=== PATIENT | male | born 1995 | race American Indian/Alaskan Native ===

== ENCOUNTER 2017-06-15 01:22 | Emergency (ER) | payer MEDICAID ==
[2017-06-15] MEDS ORDERED: ATIVAN IM ONE (02:15)
[2017-06-15] MEDS ORDERED: HALDOL IM ONE (02:15)
[2017-06-15] MEDS ORDERED: HALDOL ONE (02:17)
[2017-06-15] MEDS ORDERED: ATIVAN ONE (02:18)
[2017-06-15 03:33] LABS: Anion Gap 20 mmol/L; Blood Urea Nitrogen 11 mg/dL (9-20); Calcium 9.4 mg/dL (8.4-10.2); Carbon Dioxide 21 mmol/L (22-30); Chloride 101.1 mmol/L (98-107); Glucose 96 mg/dL (75-100); Potassium 3.9 mmol/L (3.6-5.0); Sodium 138 mmol/L (137-145)
[2017-06-15 03:34] LABS: Basophils % (Auto) 1.2 % (0.0-1.8); Eosinophils % (Auto) 3.4 % (0.0-4.3); Hematocrit 41.6 % (35.5-45.6); Hemoglobin 14.6 gm/dl (11.8-15.2); Mean Corpuscular HGB Conc 35 % (32-34); Mean Corpuscular Hemoglobin 28 pg (28-32); Mean Corpuscular Volume 79 fl (84-94); Platelet Count 258 K/mm3 (140-440); Red Blood Count 5.28 M/mm3 (3.65-5.03); White Blood Count 9.9 K/mm3 (4.5-11.0)
[2017-06-15 06:09] LABS: Urine Drugs of Abuse Note Disclamer
[2017-06-15 06:18] LABS: Bilirubin,Urine NEG (Negative); Blood,Urine NEG (Negative); Ketones,Urine NEG (Negative); Leukocyte Esterase,Urine NEG (Negative); Mucus,Urine FEW /HPF; Nitrite,Urine NEG (Negative); Protein,Urine <15 mg/dL mg/dL (Negative); Urobilinogen,Urine < 2.0 mg/dL (<2.0)
[2017-06-15] MEDS ORDERED: ALUM-MAG HYDROX-SIMETH 200-200-20MG/5ML PO PRN (07:31)
[2017-06-15] MEDS ORDERED: TYLENOL PO PRN (07:31)
[2017-06-15] MEDS ORDERED: MILK OF MAGNESIA PO PRN (07:31)
--- NOTE | 2017-06-15 07:32 | Emergency Department Report ---
ED Psych HPI - General Chief Complaint: Psych Stated Complaint: MH EVAL/POSS MANIC EPISODE Time Seen by Provider: 06/15/17 07:23 Source: patient, police Mode of arrival: Ambulatory Limitations: Other - History of Present Illness Initial Comments: 22-year-old male with a pasthypertension and schizoaffective disorder presents to the ED with combative behavior. Patient was picked up at 12:30 AM by the police department for become irate and imaging a door. Per GIs she states that patient did not take his medications today and he heard voices telling him to kick the door). Denies suicidal homicidal ideation. Denies any physical complaints. Presented with elevated blood pressure upon arrival. Patient received Haldol 5 mg IM and Ativan 2 mg IM at 2:20 AM prior to my evaluation and is currently sleeping and sedated. Patient nods in response to questions but unable to hold a conversation at this time. - Related Data Home Medications Medication Instructions Recorded Confirmed Last Taken Cogentin 10 mg PO BID 06/15/17 06/15/17 Unknown Depakote 100 mg PO BID 06/15/17 06/15/17 Unknown Haldol 10 mg PO BID 06/15/17 06/15/17 Unknown SEROquel 100 mg PO 06/15/17 Unknown Allergies Allergy/AdvReac Type Severity Reaction Status Date / Time No Known Allergies Allergy Verified 06/15/17 01:48 ED Review of Systems ROS: Stated complaint: MH EVAL/POSS MANIC EPISODE Other details as noted in HPI Comment: Unobtainable due to pts medical conditions (as per hpi) ED Past Medical Hx - Past Medical History Previous Medical History?: Yes Hx Hypertension: Yes Hx Psychiatric Treatment: Yes (schizoaffective disorder) - Surgical History Past Surgical History?: No - Social History Smoking Status: Never Smoker Substance Use Type: None - Medications Home Medications: Home Medications Medication Instructions Recorded Confirmed Last Taken Type Cogentin 10 mg PO BID 06/15/17 06/15/17 Unknown History Depakote 100 mg PO BID 06/15/17 06/15/17 Unknown History Haldol 10 mg PO BID 06/15/17 06/15/17 Unknown History SEROquel 100 mg PO 06/15/17 Unknown History ED Physical Exam - General Limitations: No Limitations - Other Other exam information: General: Patient has been medicated and is sleeping Head exam: Atraumatic, normocephalic Eyes exam: Normal appearance, pupils equal reactive to light ENT: Moist mucous membrane, normal oropharynx Neck exam: Normal inspection, full range of motion Respiratory exam: Clear to auscultation bilateral, no wheezes, rales, crackles Cardiovascular: Normal rate and rhythm, normal heart sounds Abdomen: Soft, nondistended, and nontender, with normal bowel sounds, no rebound, or guarding Extremity: Full range of motion normal inspection no deformity Back: Normal Inspection, full range of motion, no tenderness Neurologic: Sedated, arousable, able to nod to questions, no focal weakness, Psychiatric: normal affect, normal mood Skin: Warm, dry, intact ED Course Vital Signs 06/15/17 06/15/17 01:40 07:31 Temperature 98.1 F Pulse Rate 107 H 76 Respiratory 18 20 Rate Blood Pressure 182/94 131/68 [Right] O2 Sat by Pulse 97 97 Oximetry - Reevaluation(s) Reevaluation #1: 06/15/17 07:33 Continue current meds Reevaluation #2: 06/15/17 07:54 BP improved once pt calm. - Consultations Consultation #1: 06/15/17 07:51 MH consult ordered ED Medical Decision Making - Lab Data Result diagrams: 06/15/17 01:53 06/15/17 01:53 Lab Results 06/15/17 06/15/17 06/15/17 Range/Units 01:53 01:53 01:53 WBC 9.9 (4.5-11.0) K/mm3 RBC 5.28 H (3.65-5.03) M/mm3 Hgb 14.6 (11.8-15.2) gm/dl Hct 41.6 (35.5-45.6) % MCV 79 L (84-94) fl MCH 28 (28-32) pg MCHC 35 H (32-34) % RDW 14.0 (13.2-15.2) % Plt Count 258 (140-440) K/mm3 Lymph % (Auto) 31.2 (13.4-35.0) % [place] % (Auto) 8.1 H (0.0-7.3) % Eos % (Auto) 3.4 (0.0-4.3) % Baso % (Auto) 1.2 (0.0-1.8) % Lymph # 3.1 (1.2-5.4) K/mm3 [place] # 0.8 (0.0-0.8) K/mm3 Eos # 0.3 (0.0-0.4) K/mm3 Baso # 0.1 (0.0-0.1) K/mm3 Seg Neutrophils % 56.1 (40.0-70.0) % Seg Neutrophils # 5.5 (1.8-7.7) K/mm3 Sodium 138 (137-145) mmol/L Potassium 3.9 (3.6-5.0) mmol/L Chloride 101.1 (98-107) mmol/L Carbon Dioxide 21 L (22-30) mmol/L Anion Gap 20 mmol/L BUN 11 (9-20) mg/dL Creatinine 1.0 (0.8-1.5) mg/dL Estimated GFR > 60 ml/min BUN/Creatinine Ratio 11.00 % Glucose 96 (75-100) mg/dL Calcium 9.4 (8.4-10.2) mg/dL Urine Color (Yellow) Urine Turbidity (Clear) Urine pH (5.0-7.0) Ur Specific [place] (1.003-1.030) Urine Protein (Negative) mg/dL Urine Glucose (UA) (Negative) mg/dL Urine Ketones (Negative) mg/dL Urine Blood (Negative) Urine Nitrite (Negative) Urine Bilirubin (Negative) Urine Urobilinogen (<2.0) mg/dL Ur Leukocyte Esterase (Negative) Urine WBC (Auto) (0.0-6.0) /HPF Urine RBC (Auto) (0.0-6.0) /HPF U Epithel Cells (Auto) (0-13.0) /HPF Urine Mucus /HPF Urine Opiates Screen Urine Methadone Screen Ur Barbiturates Screen Valproic Acid (50-100) ug/mL Ur Phencyclidine Scrn Ur Amphetamines Screen U Benzodiazepines Scrn Urine Cocaine Screen U Marijuana (THC) Screen Drugs of Abuse Note Plasma/Serum Alcohol < 0.01 (0-0.07) gm% 06/15/17 06/15/17 06/15/17 Range/Units 02:44 05:52 05:52 WBC (4.5-11.0) K/mm3 RBC (3.65-5.03) M/mm3 Hgb (11.8-15.2) gm/dl Hct (35.5-45.6) % MCV (84-94) fl MCH (28-32) pg MCHC (32-34) % RDW (13.2-15.2) % Plt Count (140-440) K/mm3 Lymph % (Auto) (13.4-35.0) % [place] % (Auto) (0.0-7.3) % Eos % (Auto) (0.0-4.3) % Baso % (Auto) (0.0-1.8) % Lymph # (1.2-5.4) K/mm3 [place] # (0.0-0.8) K/mm3 Eos # (0.0-0.4) K/mm3 Baso # (0.0-0.1) K/mm3 Seg Neutrophils % (40.0-70.0) % Seg Neutrophils # (1.8-7.7) K/mm3 Sodium (137-145) mmol/L Potassium (3.6-5.0) mmol/L Chloride (98-107) mmol/L Carbon Dioxide (22-30) mmol/L Anion Gap mmol/L BUN (9-20) mg/dL Creatinine (0.8-1.5) mg/dL Estimated GFR ml/min BUN/Creatinine Ratio % Glucose (75-100) mg/dL Calcium (8.4-10.2) mg/dL Urine Color Yellow (Yellow) Urine Turbidity Clear (Clear) Urine pH 6.0 (5.0-7.0) Ur Specific [place] 1.015 (1.003-1.030) Urine Protein <15 mg/dl (Negative) mg/dL Urine Glucose (UA) Neg (Negative) mg/dL Urine Ketones Neg (Negative) mg/dL Urine Blood Neg (Negative) Urine Nitrite Neg (Negative) Urine Bilirubin Neg (Negative) Urine Urobilinogen < 2.0 (<2.0) mg/dL Ur Leukocyte Esterase Neg (Negative) Urine WBC (Auto) 4.0 (0.0-6.0) /HPF Urine RBC (Auto) 2.0 (0.0-6.0) /HPF U Epithel Cells (Auto) < 1.0 (0-13.0) /HPF Urine Mucus Few /HPF Urine Opiates Screen Presumptive negative Urine Methadone Screen Presumptive negative Ur Barbiturates Screen Presumptive negative Valproic Acid < 2.8 L (50-100) ug/mL Ur Phencyclidine Scrn Presumptive negative Ur Amphetamines Screen Presumptive negative U Benzodiazepines Scrn Presumptive negative Urine Cocaine Screen Presumptive negative U Marijuana (THC) Screen Presumptive positive Drugs of Abuse Note Disclamer Plasma/Serum Alcohol (0-0.07) gm% - Medical Decision Making 1013 and transferred form signed. Patient medically clear for psychiatric transfer. Awaiting acceptance - Differential Diagnosis psychosis, medication noncompliance, combative behavior Critical Care Time: No Critical care attestation.: If time is entered above; I have spent that time in minutes in the direct care of this critically ill patient, excluding procedure time. ED Disposition Clinical Impression: Psychosis, Noncompliance with medication regimen, Psychosis, Combative behavior , Medical clearance for psychiatric admission Disposition: OP ADMIT IP TO THIS HOSP Is pt being admited?: Yes Condition: Stable Time of Disposition: 15:23
[2017-06-15] MEDS ORDERED: BENZTROPINE PO SCH (10:00)
[2017-06-15] MEDS ORDERED: NON-FORMULARY (Seroquel 100 MG) PO SCH (10:00)
[2017-06-15] MEDS ORDERED: DEPAKOTE PO SCH (10:00)
[2017-06-15] MEDS ORDERED: GEODON IM PRN (16:02)
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
[2017-06-15] MEDS ORDERED: HALDOL PO SCH (22:00)
[2017-06-16] MEDS ORDERED: HALDOL ONE (08:41)
[2017-06-16] MEDS ORDERED: ATIVAN ONE (08:42)
[2017-06-16] MEDS ORDERED: ATIVAN IM ONE (08:51)
[2017-06-16] MEDS ORDERED: HALDOL IM ONE (08:52)
[2017-06-16] MEDS ORDERED: COGENTIN PO SCH (10:00)
[2017-06-16] MEDS ORDERED: HALDOL PO SCH (10:00)
[2017-06-16] MEDS ORDERED: ZESTRIL PO ONE (10:08)
[2017-06-16 10:14] VITALS: BP 133/85
== END 2017-06-16 11:12 | disposition other institution (70) ==
LOC: EEVIPCON 01:22 → ED 01:22
DX: F29 Unspecified psychosis not due to a substance or known physiological condition (principal); Z91.14 Patient's other noncompliance with medication regimen; I10 Essential (primary) hypertension; F25.9 Schizoaffective disorder, unspecified
CPT/HCPCS: 36415; 80048; 80164; 80307; 81001; 85025; 96372; 99285; G0480; J1630; J2060; J3486; 80320

== ENCOUNTER 2017-07-31 13:44 | Emergency (ER) | payer MEDICAID ==
--- NOTE | 2017-07-31 13:54 | Emergency Department Report ---
Stated Complaint: DEPRESSED Time Seen by Provider: 07/31/17 13:49 - HPI History of Present Illness: PT states he feels frustrated and depressed today. PT states he has been off of his psych medication x 18 days. PT states he was started on new medication in May. PT states he was in assisted for two weeks and he was not given his medication. - ROS Review of Systems: + depression + frustration - Exam Physical Exam: pt is alert and appropriate pt is cooperative pt has a flat affect MSE screening note: Focused history and physical exam performed. Due to findings the following was ordered: meds, eval ED Disposition for MSE Condition: Stable
[2017-07-31 14:19] LABS: Basophils % (Auto) 1.1 % (0.0-1.8); Eosinophils % (Auto) 3.6 % (0.0-4.3); Hematocrit 46.6 % (35.5-45.6); Hemoglobin 15.8 gm/dl (11.8-15.2); Mean Corpuscular HGB Conc 34 % (32-34); Mean Corpuscular Hemoglobin 27 pg (28-32); Mean Corpuscular Volume 80 fl (84-94); Platelet Count 298 K/mm3 (140-440); Red Blood Count 5.82 M/mm3 (3.65-5.03); Red Cell Distribution Width 14.5 % (13.2-15.2); White Blood Count 7.8 K/mm3 (4.5-11.0)
[2017-07-31 14:35] LABS: Bilirubin,Urine NEG (Negative); Blood,Urine NEG (Negative); Ketones,Urine NEG (Negative); Leukocyte Esterase,Urine NEG (Negative); Mucus,Urine 2+ /HPF; Nitrite,Urine NEG (Negative)
[2017-07-31 14:42] LABS: Alanine Aminotransferase 21 units/L (7-56); Albumin 4.3 g/dL (3.9-5); Albumin/Globulin Ratio 1.3 %; Alkaline Phosphatase 114 units/L (35-129); Anion Gap 20 mmol/L; Blood Urea Nitrogen 5 mg/dL (9-20); Calcium 9.2 mg/dL (8.4-10.2); Carbon Dioxide 22 mmol/L (22-30); Chloride 103.6 mmol/L (98-107); Glucose 128 mg/dL (75-100); Potassium 3.5 mmol/L (3.6-5.0); Sodium 142 mmol/L (137-145); Total Protein 7.6 g/dL (6.3-8.2)
--- NOTE | 2017-08-01 02:08 | Emergency Department Report ---
HPI - General Chief Complaint: Medical Clearance Time Seen by Provider: 07/31/17 13:49 - HPI HPI: This is a 22 year-old male who presents to the emergency department with the complaint of being out of his psychiatric medications as well as his hypertension medication, for the past 18 days. The patient says that he was released from long-term on Monday, 4 days ago. Since that time he has been staying in a hotel but says that he is running out of money to remain in a hotel/motel. On top of asking for a refill of his medications, the patient is requesting some assistance with finding housing. He has a history of schizoaffective disorder. He goes to a day care program at [facility] and sees a Dr. Krueger. He denies any suicidal or homicidal ideations or any hallucinations. Patient presented by EMS. ED Past Medical Hx - Past Medical History Hx Hypertension: Yes Hx Psychiatric Treatment: Yes (schizoaffective disorder) Additional medical history: HIGH CHOLESTEROL - Surgical History Past Surgical History?: No - Social History Smoking Status: Current Every Day Smoker Substance Use Type: Marijuana - Medications Home Medications: Home Medications Medication Instructions Recorded Confirmed Last Taken Type Cogentin 10 mg PO BID 06/15/17 08/01/17 Unknown History Haldol 10 mg PO BID 06/15/17 08/01/17 Unknown History Depakote 100 mg PO BID #40 08/01/17 Unknown Rx Lisinopril [Zestril TAB] 10 mg PO QDAY #20 tablet 08/01/17 Unknown Rx SEROquel 100 mg PO DAILY #20 08/01/17 Unknown Rx ED Review of Systems ROS: Stated complaint: DEPRESSED Other details as noted in HPI Comment: All other systems reviewed and negative Constitutional: denies: chills, fever Eyes: denies: eye pain, eye discharge, vision change ENT: denies: ear pain, throat pain Respiratory: denies: cough, shortness of breath, wheezing Cardiovascular: denies: chest pain, palpitations Gastrointestinal: denies: abdominal pain, nausea, diarrhea Genitourinary: denies: urgency, dysuria Musculoskeletal: denies: back pain, joint swelling, arthralgia Skin: denies: rash, lesions Neurological: denies: headache, weakness, paresthesias Physical Exam - Physical Exam Vital Signs: Vital Signs 07/31/17 07/31/17 08/01/17 13:51 21:27 01:16 Temperature 98.2 F 98.6 F 98.5 F Pulse Rate 97 H 99 H 79 Respiratory 17 18 18 Rate Blood Pressure 154/90 174/109 177/105 Blood Pressure [Left] O2 Sat by Pulse 97 97 97 Oximetry 08/01/17 01:46 Temperature Pulse Rate 94 H Respiratory 16 Rate Blood Pressure Blood Pressure 157/102 [Left] O2 Sat by Pulse 98 Oximetry Physical Exam: GENERAL: The patient is well-developed well-nourished. HENT: Normocephalic. Atraumatic. Patient has moist mucous membranes. EYES: Extraocular motions are intact. Pupils equal reactive to light bilaterally. NECK: Supple. Trachea is midline. CHEST/LUNGS: Clear to auscultation. There is no respiratory distress noted. HEART/CARDIOVASCULAR: Regular. There is no tachycardia. There is no gallop rub or murmur. ABDOMEN: Abdomen is soft, nontender. Patient has normal bowel sounds. There is no abdominal distention. SKIN: Skin is warm and dry. NEURO: The patient is awake, alert, and oriented. The patient is cooperative. The patient has no focal neurologic deficits. The patient has normal speech. MUSCULOSKELETAL: There is no tenderness or deformity. There is no limitation range of motion. There is no evidence of acute injury. ED Course Vital Signs 07/31/17 07/31/17 08/01/17 13:51 21:27 01:16 Temperature 98.2 F 98.6 F 98.5 F Pulse Rate 97 H 99 H 79 Respiratory 17 18 18 Rate Blood Pressure 154/90 174/109 177/105 Blood Pressure [Left] O2 Sat by Pulse 97 97 97 Oximetry 08/01/17 01:46 Temperature Pulse Rate 94 H Respiratory 16 Rate Blood Pressure Blood Pressure 157/102 [Left] O2 Sat by Pulse 98 Oximetry ED Medical Decision Making - Lab Data Result diagrams: 07/31/17 14:00 07/31/17 14:00 - Medical Decision Making 22 yo M presents for a refill of his psych meds and for snf. No signs of psychosis at this time and patient does not meet criteria to be a 1013. He allegedly has a daycare psych program that he goes to but may not be able to get the psych meds until f/u with the psychiatrist separately. I will fill most of his pysch meds for a short supply to avoid any development of psychosis. financial services representative contacted and the patient remained in the ED until he was seen by social worker for evaluation and ended up being given some transitional housing and snf options. Labs unremarkable. Vitals stable throughout his ED course. - Differential Diagnosis Schizophrenia, Schizoaffective, Bipolar Critical Care Time: No Critical care attestation.: If time is entered above; I have spent that time in minutes in the direct care of this critically ill patient, excluding procedure time. ED Disposition Clinical Impression: History of schizoaffective disorder, Noncompliance with medication regimen Hypertension Qualifiers: Hypertension type: essential hypertension Qualified Code(s): I10 - Essential ( primary) hypertension Disposition: TO HOME OR SELFCARE Is pt being admited?: No Condition: Stable Instructions: Schizoaffective Disorder (ED), Hypertension (ED) Additional Instructions: Please follow-up with your primary care doctor and your psychiatrist as soon as possible. Please try and quit smoking. Stay away from foods that are high in salt and caffeinated products to help with your blood pressure. I have restarted your lisinopril as well as your psychiatric medications for a short course but it is imperative that you see your psychiatrist for medication refills. Return to the emergency Department with any worsening of your symptoms or any acute distress. Prescriptions: Depakote 100 mg PO BID #40 Lisinopril [Zestril TAB] 10 mg PO QDAY #20 tablet SEROquel 100 mg PO DAILY #20 Referrals: PRIMARY CAREMD [Primary Care Provider] - 3-5 Days [facility] [Outside] - [facility] [Outside] - [facility] Time of Disposition: 05:49
[2017-08-01] MEDS ORDERED: ZESTRIL PO ONE (02:15)
[2017-08-01 15:46] VITALS: BP 200/111
== END 2017-08-01 15:46 | disposition home or self-care (01) ==
LOC: ED 13:44 → EEVIPCON 13:44 → ED 08-01 15:46
DX: F20.9 Schizophrenia, unspecified (principal); E78.00 Pure hypercholesterolemia, unspecified; F17.210 Nicotine dependence, cigarettes, uncomplicated; F12.10 Cannabis abuse, uncomplicated; Z91.14 Patient's other noncompliance with medication regimen
CPT/HCPCS: 36415; 80053; 81001; 85025; 99284; G0480; 80320

== ENCOUNTER 2019-11-11 17:00 | Emergency (ER) | payer MEDICAID ==
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
[2019-11-11 19:31] LABS: Basophils # (Auto) 0.1 K/mm3 (0.0-0.1); Basophils % (Auto) 0.9 % (0.0-1.8); Eosinophils # (Auto) 0.1 K/mm3 (0.0-0.4); Hematocrit 41.1 % (35.5-45.6); Hemoglobin 14.3 gm/dl (11.8-15.2); Lymphocytes # (Auto) 2.6 K/mm3 (1.2-5.4); Lymphocytes % (Auto) 35.6 % (13.4-35.0); Mean Corpuscular HGB Conc 35 % (32-34); Mean Corpuscular Volume 77 fl (84-94); Monocytes # (Auto) 0.6 K/mm3 (0.0-0.8); Monocytes % (Auto) 7.7 % (0.0-7.3); Platelet Count 274 K/mm3 (140-440); Red Blood Count 5.37 M/mm3 (3.65-5.03); Red Cell Distribution Width 15.7 % (13.2-15.2)
[2019-11-11 19:39] LABS: BUN/Creatinine Ratio 12; Blood Urea Nitrogen 11 mg/dL (9-20); Calcium 9.3 mg/dL (8.4-10.2); Hemolysis Index 5
[2019-11-11 20:04] LABS: Bilirubin,Urine NEG (Negative); Blood,Urine NEG (Negative); Color,Urine Yellow (Yellow); Mucus,Urine 1+ /HPF
[2019-11-11 20:11] LABS: Amphetamine Screen,Urine PRESUMPTIVE NEGATIVE; Benzodiazepines Screen,Urine PRESUMPTIVE NEGATIVE; Cocaine Screen,Urine PRESUMPTIVE NEGATIVE; Methadone Screen,Urine PRESUMPTIVE NEGATIVE; Opiate Screen,Urine PRESUMPTIVE NEGATIVE
[2019-11-11 20:38] LABS: Cannabinoid Screen,Urine PRESUMPTIVE POSITIVE
[2019-11-11] MEDS ORDERED: DIVALPROEX DR 500 MG TAB ONE (21:05)
[2019-11-11] MEDS ORDERED: DIVALPROEX DR 500 MG TAB PO ONE (21:05)
[2019-11-12 08:09] VITALS: BP 147/83
== END 2019-11-12 14:40 | disposition home or self-care (01) ==
LOC: ED 17:00
DX: F25.9 Schizoaffective disorder, unspecified (principal); I10 Essential (primary) hypertension; E78.00 Pure hypercholesterolemia, unspecified
CPT/HCPCS: 36415; 80048; 80307; 80320; 81001; 85025; G0480

== ENCOUNTER 2019-11-12 15:46 | Emergency (ER) | payer MEDICAID ==
[2019-11-12 15:49] VITALS: BP 150/97
[2019-11-12] MEDS ORDERED: DIVALPROEX ER 500 MG TAB PO ONE (15:54)
--- NOTE | 2019-11-12 16:00 | Emergency Department Report ---
Chief Complaint: Psych Stated Complaint: MH EVAL Time Seen by Provider: 11/12/19 15:54 - HPI History of Present Illness: 24 yo male seen at this ER last night. Mental health evaluation completed and patient discharged to return to his [facility]. Pt waiting for bilingual patient support caseworker to arrive. He request a dose of his Depakote before leaving. Pt last dose of Depakote was yesterday. He usually take Depakote ER 1000mg Q12. Pt with no current complaint. Calm and cooperative - ROS Review of Systems: All symptom reviewed and are negative - Exam Vital Signs: Vital Signs 11/12/19 15:48 Temperature 98.3 F Pulse Rate 122 H Respiratory 20 Rate Blood Pressure 150/97 [Right] O2 Sat by Pulse 95 Oximetry Physical Exam: Alert and oriented calm and cooperative Resp easy and unlabored Skin warm dry and contact. MSE screening note: Focused history and physical exam performed. Due to findings the following was ordered: ED Medical Decision Making - Medical Decision Making 24 YO male with hx of Schizophrenia He was seen and evaluated in this ER. Cleared to return to nursing home. I was asked to see patient and give dose of Depakote prior to leaving. Pt usually takes Depakote 1000mg ER BID and has not received any today . Depakote ordered and given. Pt calm cooperative awaiting arrival of transportation to his nursing home. ED Disposition for MSE Clinical Impression: Schizophrenia Qualifiers: Schizophrenia type: unspecified Qualified Code(s): F20.9 - Schizophrenia, unspecified Is pt being admited?: No Does the pt Need Aspirin: No Condition: Stable Time of Disposition: 16:05
== END 2019-11-12 16:12 | disposition home or self-care (01) ==
LOC: ED 15:46
DX: F20.9 Schizophrenia, unspecified (principal)
CPT/HCPCS: 99282

== ENCOUNTER 2022-08-18 03:31 | Emergency (ER) | payer MEDICAID ==
--- NOTE | 2022-08-18 08:21 | Emergency Department Report ---
ED Recheck HPI - General Chief Complaint: Medical Clearance Stated Complaint: MED REFILL Time Seen by Provider: 08/18/22 07:49 Source: EMS Mode of arrival: Stretcher Limitations: No Limitations - History of Present Illness Initial Comments: 27-year-old black male with a past medical history of schizophrenia and hypertension presents to the emergency department requesting medication refill. He states that he has been out of his Depakote, Invega, and lisinopril for about a month and is here for refill until he can follow-up with his primary care prov ider. He denies visual and auditory hallucinations, HI, and SI. Complaint: medication refill request Returns Today for: request for prescription Associated Symptoms: none - Related Data Home Medications Medication Instructions Recorded Confirmed Last Taken Cogentin 10 mg PO BID 06/15/17 11/11/19 Unknown Haldol 10 mg PO BID 06/15/17 11/11/19 Unknown Depakote 1,000 mg PO QHS 11/11/19 11/11/19 Unknown Previous Rx's Medication Instructions Recorded Last Taken Type SEROquel 100 mg PO DAILY #20 08/01/17 Unknown Rx Divalproex ER [DepaKOTE ER] 1,000 mg PO QDAY #20 tablet 11/12/19 Unknown Rx Divalproex ER [DepaKOTE ER] 1,000 mg PO QDAY #30 tablet 08/18/22 Unknown Rx Paliperidone [Invega] 6 mg PO QAM #30 tab 08/18/22 Unknown Rx lisinopriL [Zestril TAB] 10 mg PO QDAY #20 tablet 08/18/22 Unknown Rx Allergies Allergy/AdvReac Type Severity Reaction Status Date / Time No Known Allergies Allergy Verified 11/12/19 15:57 ED Review of Systems ROS: Stated complaint: MED REFILL Other details as noted in HPI Comment: All other systems reviewed and negative Constitutional: denies: chills, fever Respiratory: denies: shortness of breath Cardiovascular: denies: chest pain, palpitations Gastrointestinal: denies: abdominal pain, nausea, vomiting Musculoskeletal: denies: back pain Neurological: denies: headache, weakness Psychiatric: denies: anxiety, depression, auditory hallucinations, visual hallucinations, homicidal thoughts, suicidal thoughts ED Past Medical Hx - Past Medical History Previous Medical History?: Yes Hx Hypertension: Yes Hx Psychiatric Treatment: Yes (schizoaffective disorder) Additional medical history: HIGH CHOLESTEROL - Surgical History Past Surgical History?: No - Social History Smoking Status: Current Every Day Smoker Substance Use Type: None - Medications Home Medications: Home Medications Medication Instructions Recorded Confirmed Last Taken Type Cogentin 10 mg PO BID 06/15/17 11/11/19 Unknown History Haldol 10 mg PO BID 06/15/17 11/11/19 Unknown History SEROquel 100 mg PO DAILY #20 08/01/17 11/11/19 Unknown Rx Depakote 1,000 mg PO QHS 11/11/19 11/11/19 Unknown History Divalproex ER [DepaKOTE ER] 1,000 mg PO QDAY #20 tablet 11/12/19 Unknown Rx Divalproex ER [DepaKOTE ER] 1,000 mg PO QDAY #30 tablet 08/18/22 Unknown Rx Paliperidone [Invega] 6 mg PO QAM #30 tab 08/18/22 Unknown Rx lisinopriL [Zestril TAB] 10 mg PO QDAY #20 tablet 08/18/22 Unknown Rx ED Physical Exam - General Limitations: No Limitations General appearance: alert, in no apparent distress - Head Head exam: Present: atraumatic, normocephalic - Eye Eye exam: Present: normal appearance. Absent: conjunctival injection, periorbital swelling, periorbital tenderness - Neck Neck exam: Present: normal inspection. Absent: tenderness, full ROM - Respiratory Respiratory exam: Present: normal lung sounds bilaterally. Absent: respiratory distress, wheezes, rales, rhonchi, stridor, chest wall tenderness - Cardiovascular Cardiovascular Exam: Present: tachycardia, normal heart sounds - GI/Abdominal GI/Abdominal exam: Present: soft, normal bowel sounds. Absent: distended, tenderness, guarding, rebound, rigid - Extremities Exam Extremities exam: Present: normal inspection, full ROM, normal capillary refill. Absent: tenderness, pedal edema, joint swelling, calf tenderness - Back Exam Back exam: Present: normal inspection. Absent: CVA tenderness (R), CVA tenderness (L) - Neurological Exam Neurological exam: Present: alert, oriented X3, CN II-XII intact, normal gait, reflexes normal. Absent: motor sensory deficit - Psychiatric Psychiatric exam: Present: normal affect, normal mood - Skin Skin exam: Present: warm, dry, intact, normal color ED Course Vital Signs 08/18/22 03:37 Temperature 98.7 F Pulse Rate 110 H Respiratory 18 Rate Blood Pressure 163/111 O2 Sat by Pulse 96 Oximetry ED Recheck MDM - Differential Diagnosis Prescription Refill(s) - Medical Decision Making 27-year-old black male with a past medical history of schizophrenia and hype rtension presents to the emergency department requesting medication refill. He states that he has been out of his Depakote, Invega, and lisinopril for about a month and is here for refill until he can follow-up with his primary care provider. He denies visual and auditory hallucinations, HI, and SI. Patient without complaints of at this time, and physical exam unremarkable. Patient will be given prescription refill and advised to follow-up with his primary care provider as planned and return to the emergency department as needed. He verbalizes understanding of and agreement with plan of care. Critical care attestation.: If time is entered above; I have spent that time in minutes in the direct care of this critically ill patient, excluding procedure time. ED Disposition Clinical Impression: Medication refill Disposition: 01 HOME / SELF CARE / HOMELESS Is pt being admited?: No Does the pt Need Aspirin: No Condition: Stable Additional Instructions: Take medications as prescribed. Follow-up with your primary care provider for further evaluation and management. Return to the emergency department immediately if you develop chest pain, shortness of breath, or any concerning symptoms. Prescriptions: Divalproex ER [DepaKOTE ER] 1,000 mg PO QDAY #30 tablet Paliperidone [Invega] 6 mg PO QAM #30 tab lisinopriL [Zestril TAB] 10 mg PO QDAY #20 tablet Referrals: ABHINAV HAGEN MD [Primary Care Provider] - 3-5 Days [facility] [Outside] - 3-5 Days [facility] [Outside] - 3-[address] [facility] [Outside] - 3-5 Days Time of Disposition: 08:23
[2022-08-18 09:08] VITALS: BP 143/96
== END 2022-08-18 08:52 | disposition home or self-care (01) ==
LOC: ED 03:31
DX: F20.9 Schizophrenia, unspecified (principal); Z76.0 Encounter for issue of repeat prescription; I10 Essential (primary) hypertension; F17.200 Nicotine dependence, unspecified, uncomplicated
CPT/HCPCS: 99283